=== PATIENT | male | born 2000 | race Two or more races ===

== ENCOUNTER → 2018-06-04 | Outpatient (CLI) | payer SELFPAY ==
--- NOTE | 2018-06-10 13:27 | Pulmonary Function Test ---
Pulmonary Function Test Date of Procedure:: 06/10/18 INDICATION:: Asthma Referring Provider: Dr. Jones Crosstie Inspector: Erica Castro MAINTENANCE SUPERVISOR [employer], [employer] TE[employer] - Report Spirometry: FVC 5.48 L 122% FEV1 4.76 L 123% FEV1/FVC %87 predicted 86 FEF 25-75% 5.02 L 116% Impression: Normal spirometry
== END ==
LOC: RT 09:04
PROVIDERS: ATTEND Pediatrics
DX: J45.909 Unspecified asthma, uncomplicated (principal)
CPT/HCPCS: 94010